=== PATIENT | male | born 1950 | race Caucasian/White ===

== ENCOUNTER → 2016-11-19 | Outpatient (CLI) | payer MEDICARE, OTHER | END | disposition home or self-care (01) | LOC: GMAL 10:21 | PROVIDERS: ATTEND Family Medicine | DX: D51.3 Other dietary vitamin B12 deficiency anemia (principal); E55.9 Vitamin D deficiency, unspecified ==

== ENCOUNTER → 2017-06-17 | Outpatient (CLI) | payer MEDICARE, OTHER | LOC: GMAL 10:37 | PROVIDERS: ATTEND Family Medicine | DX: R53.82 Chronic fatigue, unspecified (principal); E55.9 Vitamin D deficiency, unspecified ==

== ENCOUNTER → 2018-03-31 | Outpatient (CLI) | payer MEDICARE, OTHER | LOC: GMAL 10:41 | PROVIDERS: ATTEND Family Medicine | DX: Z12.5 Encounter for screening for malignant neoplasm of prostate (principal) ==

== ENCOUNTER → 2018-10-06 | Outpatient (CLI) | payer MEDICARE, OTHER | LOC: GMAL 10:35 | PROVIDERS: ATTEND Family Medicine | DX: D51.3 Other dietary vitamin B12 deficiency anemia (principal); E55.9 Vitamin D deficiency, unspecified ==

== ENCOUNTER → 2019-04-20 | Outpatient (CLI) | payer MEDICARE, OTHER | LOC: GMAL 10:36 | PROVIDERS: ATTEND Family Medicine | DX: R53.82 Chronic fatigue, unspecified (principal); Z12.5 Encounter for screening for malignant neoplasm of prostate; I10 Essential (primary) hypertension; E78.5 Hyperlipidemia, unspecified | CPT/HCPCS: 84443; G0103 ==

== ENCOUNTER 2019-06-07 06:45 | Day surgery (SDC) | payer MEDICARE, OTHER ==
--- NOTE | 2019-06-06 14:47 | SSS ---
CHIEF COMPLAINT: History of colon polyps. HISTORY OF PRESENT ILLNESS: Mr. Goldman is a 69 year-old male who presented to my office for routine followup. It was noted that he was due for a repeat colonoscopy. He had a colonoscopy in December of 2004 where he had 1 sigmoid polyp removed and it was also noted that he had diverticula. This was repeated in April of 2009 and he had no polyps at that time. He is now due for a repeat colonoscopy. Risks and benefits were discussed. He is agreeable with proceeding. He has no symptoms referable to his bowels, specifically no abdominal pain, change in his bowel habits, weight loss or blood in the stool. PAST MEDICAL HISTORY: 1. Hypertension. He had a nuclear stress test in August of 2017 that showed an ejection fraction of 69% with a fixed hypoperfusion defect in his inferior wall that was likely representing just artifact. He had an echocardiogram that showed an ejection fraction of 60%, grade 1 diastolic dysfunction and aortic valve sclerosis without stenosis on 10/06/18. 2. Cholelithiasis diagnosed in the spring. 3. Osteoarthritis primarily of the knees. 4. Obesity though he has lost a great deal of weight recently intentionally. PAST SURGICAL HISTORY: 1. Appendectomy in November of 2007 complicated by postoperative ileus. 2. Umbilical hernia repair in August of 1999. 3. Lumbar neurotomy of L3, L4 and L5 by Dr. Bashir in 04/2017. 4. Colonoscopies as above. CURRENT MEDICATIONS: 1. Vitamin D. 2. Lisinopril. 3. Amlodipine. ALLERGIES: NONE. FAMILY HISTORY: Father had bypass surgery at age 60. Mother at 76 from a presumed GI bleed. She was found in her trailer with a bunch of blood around her rectum. He has 2 brothers, Walt with hypertension and Eagle in good health, a sister, Sonia in good health. He has no children. He has a niece, Sarah with diabetes. SOCIAL HISTORY: Formerly worked at the [employer] in [place]. He is single. He is a college graduate. He graduated from [employer] in 1974 with a Bachelor of Arts Degree. He enjoys playing golf. He smoked briefly but quit at age 25. He drinks alcohol usually in the evenings. PHYSICAL EXAMINATION: VITAL SIGNS: Blood pressure 110/68, weight 241, height 5' 10", pulse 68. GENERAL: He is awake and alert in no acute distress. HEENT: Unremarkable. CHEST: Lungs are clear. CARDIOVASCULAR: Regular rate and rhythm with a 3/6 systolic and diastolic murmur. ABDOMEN: Obese but benign. EXTREMITIES: Without edema. NEUROLOGIC: Nonfocal. RECTAL: Deferred until the time of colonoscopy. ASSESSMENT: 1. History of colon polyps. PLAN: Screening colonoscopy on 06/07/19. #[id number] [facility]
[2019-06-07] MEDS ORDERED: LACTATED RINGERS 1,000 ML ONE (06:53)
[2019-06-07] MEDS ORDERED: PROPOFOL 200 MG/20 ML VIAL IV ONE (07:00)
[2019-06-07] MEDS ORDERED: LIDOCAINE 1% 10 ML VIAL INJ ONE (07:00)
[2019-06-07] MEDS ORDERED: MIDAZOLAM INJ 2 MG/2 ML VIAL ONE (07:28)
[2019-06-07 09:29] VITALS: BP 131/63; TEMP 97.1; O2SAT 97
--- NOTE | 2019-06-09 21:25 | OP ---
DATE OF PROCEDURE: 06/07/19 PREOPERATIVE DIAGNOSIS: 1. Need for screening colonoscopy. 2. History of colon polyps. POSTOPERATIVE DIAGNOSIS: 1. A 0.5 x 0.25 cm cecal polyp biopsied several times to obliteration. 2. A 0.25 x 0.25 cm cecal polyp biopsied times 2 to obliteration submitted in the same container as #1. 3. A 0.5 x 0.25 sigmoid polyp biopsied times 3 to obliteration. 4. Left sided diverticular disease. 5. Grade 2 internal hemorrhoids. PROCEDURE: 1. Colonoscopy. SURGEON: Papo James M.D. ESTIMATED BLOOD LOSS: Less than 1 mL. COMPLICATIONS: No immediate complications. ANESTHESIA: Versed 2 mg and propofol 600 mg administered intravenously by David Colon C.R.N.A. TECHNIQUE: After informed consent was obtained from the patient, the patient was taken to the Endoscopy Suite and placed in the left lateral decubitus position. Vital signs were monitored throughout the procedure. Supplemental oxygen was administered throughout the procedure. After adequate conscious sedation was obtained a digital rectal examination was performed, which was unremarkable. The colonoscope was then advanced into the patient's rectum and up through the sigmoid, descending, transverse and ascending colon to the level of the cecum. Manual stomach pressure had to be applied to reach the cecum but it was reached. The terminal ileum could not be entered. The usual cecal landmarks were identified. Overall the bowel prep was quite good though there were a few areas of liquid stool in the distal, transverse and proximal descending colon. An effort was made to suction as much of this out as possible. The aforementioned polyps in the postoperative diagnosis were noted and biopsied to obliteration. He did have some left sided diverticula that were small in size and moderate in number. In the rectum the colonoscope was retroflexed upon itself. He did have grade 1 to 2 internal hemorrhoids. The colonoscope was then unretroflexed and air was suctioned out of the patient's rectum. He tolerated the procedure well. PLAN: He is to followup in my office in 7 to 10 days. Will repeat his colonoscopy no sooner than 3 years and no later than 5 years pending the pathology report. #[id number] [facility]
== END 2019-06-07 09:24 | disposition home or self-care (01) ==
LOC: AMB 06:45
PROVIDERS: ATTEND Family Medicine
DX: Z12.11 Encounter for screening for malignant neoplasm of colon (principal); D12.0 Benign neoplasm of cecum; D12.5 Benign neoplasm of sigmoid colon; K57.30 Diverticulosis of large intestine without perforation or abscess without bleeding; K64.1 Second degree hemorrhoids; I10 Essential (primary) hypertension; M17.0 Bilateral primary osteoarthritis of knee; Z86.010 Personal history of colon polyps; Z87.891 Personal history of nicotine dependence; Z79.899 Other long term (current) drug therapy
CPT/HCPCS: 00812; 45380; 88305; J2250; J3490; J7120

== ENCOUNTER → 2019-06-21 | Outpatient (CLI) | payer MEDICARE ==
--- NOTE | 2019-06-22 10:07 | US ---
EXAM DESCRIPTION: Carotid Duplex: ULTRASOUND. CLINICAL HISTORY: 69 years Male Occlusion and stenosis of bilateral carotid arteries COMPARISON: None. TECHNIQUE: Transcutaneous scanning utilizing robertson-scale and Doppler modes to evaluate the bilateral carotid systems and vertebral arteries. Percentage of diameter of stenosis or no stenosis recorded will be based upon NASCET criteria. FINDINGS: Peak systolic/end diastolic (CM-Sec) CCA Right 68/7 Left 64/6. ICA Right proximal 44/7, distal 95/21. Left proximal 34/10, Distal 74/17. Vertebral Right 30/0 Left 53/7. ECA (PS Only) Right 46 left 68. ICA/CCA peak systolic ratio: Right 1.4 Left 1.2 ICA/CCA end diastolic ratio: Right 3.2 Left 2.8 Vertebral arteries: antegrade flow. Comments: Bilateral moderate atherosclerotic calcification. Spectral broadening right proximal ICA and mid ICA. Right CCA Mid bulb: Area stenosis 33% and diameter stenosis 23%. Left CCA mid bulb: area and diameter stenosis less than 20%. IMPRESSION: 1. Doppler evaluation of the bilateral carotid systems and vertebral arteries shows no hemodynamically significant stenoses (40-50%). 2. Moderate amount plaque seen in the carotid arteries bilaterally. Bilateral vertebral arteries showed antegrade-cephalad flow. Electronically signed by: Octavio Downing MD 06/22/2019 10:05 AM CDT
== END ==
LOC: US 07:57
PROVIDERS: ATTEND Family Medicine
DX: I65.23 Occlusion and stenosis of bilateral carotid arteries (principal)